=== PATIENT | male | born 1955 | race Caucasian/White ===

== ENCOUNTER 2023-09-30 13:41 | Outpatient (CLI) | payer MEDICARE, SELFPAY ==
--- NOTE | ~2023-09-30 | PE_ITS ---
EXAMINATION: PET_PETPSMAST_PT DATE: 09/30/2023 15:48 INDICATION: Prostate cancer TECHNIQUE: 4.92 mCi of Locametz Ga-[id number]) was administered i.v. Low dose computed tank graphy (CT) images were acquired from the base of the brain to the base of the brain to the proximal thighs for attenuation correction and anatomic localization. Positron emission tomography (PET) image s were acquired in the same distribution beginning 88 minutes after injection. Images including fused PET/CT images were reconstructed in axial, coronal, and sagittal planes. Automated exposure control technique was employed. The dose-length product was 1292.60mGy-cm. COMPARISON: None FINDINGS: Head/neck: Typical pattern of symmetric physiologic increased activity in the lacrimal, parotid and submandibula r glands as well as along the mucosa of the nasal and oral cavities, pharynx and hypopharynx. No path ologically enlarged cervical lymphadenopathy or suspicious foci of increased uptake in the visualized head or neck. Chest: No suspicious pulmonary nodules, pneumonia, pulmonary edema or pleural effusion. Heart size is normal . Mild cardiomegaly. Atherosclerotic coronary artery calcification. Median sternotomy and changes of coronary artery bypass grafting. Thoracic aorta is normal in caliber. No pathologically enlarged or P SMA avid thoracic lymphadenopathy. Abdomen/pelvis/proximal thighs: Physiologic renal accumulation and excretion of activity in the right kidney, bladder and along porti ons of the right ureters. A few nonobstructing stones in the right kidney the largest in the interpol ar region measuring up to 2.1 cm. Status post post left nephrectomy. There is a small region of incre ased PSMA uptake at the left peripheral zone of the prostate without radiologic correlate with avtar l SUV of 10.5 likely representing the site of primary prostate cancer. Cholecystectomy clips the gall bladder fossa. Normal degree and slightly heterogenous pattern of increased uptake throughout the lisbeth er and spleen without radiologic correlate or dominant PSMA avid lesion. The pancreas and bilateral a drenal glands are normal. Moderate uptake scattered throughout the bowels with typical duodenal and p roximal jejunal predominance and without radiologic correlate, also likely physiologic. There is exte nsive diverticulosis throughout the colon without adjacent inflammatory stranding to suggest divertic ulitis. No other abnormal foci of increased uptake or pathologically enlarged lymphadenopathy in the abdomen, pelvis or proximal thighs. Spinal stimulator leads extend into the central canal the lower t horacic spine extending cephalad with distal tips at the level of T6-T7. Moderate-sized bilateral fat -containing inguinal hernias. Musculoskeletal: Moderate cervical and thoracic and severe lumbar spondylosis and there are bridging osteophytes at mu ltiple levels in the thoracic spine consistent with diffuse idiopathic skeletal hyperostosis (DISH). No suspicious lytic, blastic or PSMA avid bone lesions. IMPRESSION: 1. Small region of increased asymmetric uptake in the left peripheral zone of the prostate consistent with primary prostate cancer. No evident metastatic disease. 2. Status post left nephrectomy and obstructing stones in the remaining right kidney. 3. Extensive diverticulosis. 4. Moderate-sized bilateral fat-containing inguinal hernias. Reviewed, dictated and finalized at location A. IMPRESSION: 1. Small region of increased asymmetric uptake in the left peripheral zone of t he prostate consistent with primary prostate cancer. No evident metastatic dise ase. 2. Status post left nephrectomy and obstructing stones in the remaining right k idney. 3. Extensive diverticulosis. 4. Moderate-sized bilateral fat-cont
== END 2023-09-30 13:42 | disposition home or self-care (01) ==
PROVIDERS: Visit Provider Urology
DX: C61 Malignant neoplasm of prostate (principal); K57.30 Diverticulosis of large intestine without perforation or abscess without bleeding; K40.20 Bilateral inguinal hernia, without obstruction or gangrene, not specified as recurrent; Z90.5 Acquired absence of kidney
CPT/HCPCS: 78815; A9596